=== PATIENT | female | born 1970 | race Asian ===

== ENCOUNTER 2020-11-25 00:24 | Emergency (ER) | payer OTHER ==
[~2020-11-25] VITALS: Ht 165.1 cm; Wt 49.9 kg
[2020-11-25 02:56] LABS: Source, Urine Clean Catch
[2020-11-25 03:00] LABS: Appearance, Urine Cloudy (Clear); Blood, Urine 5+ (Neg); Color, Urine Yellow (P-Yellow); Glucose Qualitative, Urine Neg (Neg); Ketones, Urine Neg (Neg); Leukocyte Esterase, Urine 3+ (Neg); Nitrite, Urine Pos (Neg); Protein, Urine 3+ (Neg); Specific Gravity, Urine 1.025 (1.003-1.022); Urobilinogen, Urine 1+ (Normal)
[2020-11-25 03:01] LABS: Bilirubin, Urine 1+ (Neg)
[2020-11-25 03:09] LABS: Bacteria Many /hpf; Red Blood Cells, Urine 25-50 /hpf (0-2); Squamous Epithelial Cells Few /hpf (Few); White Blood Cells, Urine TNTC /hpf (0-5)
[2020-11-25] MEDS ORDERED: Bactrim Ds Tab1 EACH PO (04:14)
== END 2020-11-25 04:25 | disposition home or self-care (01) ==
LOC: ER 00:24
PROVIDERS: Emergency Medicine
DX: N39.0 Urinary tract infection, site not specified (principal)
CPT/HCPCS: 81001; 87077; 87086; 87186; 99283; A9270